=== PATIENT | female | born 1960 | race Caucasian/White ===

== ENCOUNTER 2019-02-22 15:04 | Emergency (ER) | payer MEDICAID ==
[2019-02-22 16:03] LABS: URINE BLOOD (Dip) POC Negative (NEGATIVE); URINE GLUCOSE (Dip) POC Negative (NEGATIVE); URINE KETONES (Dip) POC Negative (NEGATIVE); URINE LEUKOCYTE EST (Dip) POC Negative (NEGATIVE); URINE NITRITE (Dip) POC Negative (NEGATIVE); URINE TOTAL PROTEIN POC Negative (NEGATIVE)
[2019-02-22 16:03] LABS: URINE PH (Dip) POC 5.5 (5.0-8.5)
== END 2019-02-22 16:52 | disposition home or self-care (01) ==
LOC: FTE 15:04
DX: N39.0 Urinary tract infection, site not specified (principal)
CPT/HCPCS: 81003; 93005; 99283

== ENCOUNTER 2019-04-17 13:23 | Emergency (ER) | payer MEDICAID | END 2019-04-17 14:00 | disposition home or self-care (01) | LOC: FTE 13:23 | DX: J30.2 Other seasonal allergic rhinitis (principal) | CPT/HCPCS: 99283 ==